=== PATIENT | male | born 1955 | race Caucasian/White ===

== ENCOUNTER 2019-02-19 07:54 | Day surgery (SDC) | payer MEDICAID ==
[~2019-02-19 07:54] MED LIST: Bupivacaine 0.5% 50 ML MDV ONE; Lidocaine 1% with EPINEPHrine 1:100,000 50 ML MDV ONE
[2019-02-19] MEDS ORDERED: Propofol 200 MG/20 ML SDV ONE (08:22)
[2019-02-19] MEDS ORDERED: fentaNYL 100 MCG/2 ML SDV ONE (08:22)
[2019-02-19] MEDS ORDERED: Midazolam 1 MG/ML 2 ML SDV ONE (08:23)
[2019-02-19] MEDS ORDERED: MVI, Adult with Vitamin K 10 ML, Thiamine 200 MG, Chromium/Copper/Mang/Selen/Zn 1 ML in... IV ONE ×4 (08:30)
[2019-02-19] MEDS ORDERED: Linezolid 600 MG in Premix Bag 1 BAG IV ONE (09:00)
[2019-02-19] MEDS ORDERED: Lactated Ringers 1,000 ML IV ONE (09:00)
[2019-02-19] MEDS ORDERED: Meropenem 500 MG SDV ONE (10:22)
[2019-02-19] MEDS ORDERED: Rocuronium 50 MG/5 ML Vial ONE (12:43)
--- NOTE | 2019-02-20 00:33 | OR ---
DATE OF PROCEDURE: 02/19/2019 SURGEON: Wei Handley MD PREOPERATIVE DIAGNOSIS: Indication for central venous access. POSTOPERATIVE DIAGNOSIS: Indication for central venous access. OPERATIVE PROCEDURE: Insertion of Bard PowerPort via left subclavian vein approach (25756). ANESTHESIA: Local plus IV sedation. INDICATION FOR PROCEDURE: This is a 63-year-old presenting with poorly differentiated squamous cell carcinoma, widely metastatic and of unknown primary. Will receive chemotherapy and to facilitate venous access, a Bard port is to be placed. Potential risks including bleeding, infection, injury to the lung and/or vasculature during insertion, problems with port becoming infected or occluded were all reviewed, and the patient wishes to proceed. DETAILS OF PROCEDURE: The patient was taken to the operating room and placed in a supine position. After IV sedation was administered, the upper chest and neck areas were prepped and draped. Left subclavian vein was then cannulated. Guidewire manipulated from there into the superior vena cava. Some additional local was injected. Transverse infraclavicular incision was made and carried down through the skin and subcutaneous tissue and through the pectoralis major fascia. A pocket was then constructed behind the pectoralis major fascia and the port had been placed in that location. The catheter and the port were cut such that the tip was lying in the area of the superior vena cava and right atrial junction, which was then deployed there with a peel-away catheter inserted without difficulty. The incision was closed with 3-0 and 4-0 Vicryl stitch deep and a 5-0 Vicryl subcuticular stitch. Port was then aspirated and then re-injected with heparinized saline with good flow in and out being noted. Dressing was applied. The patient was taken to the recovery room in satisfactory condition. Wei Handley MD /[id number]
== END 2019-02-19 13:45 | disposition home or self-care (01) ==
LOC: JP.SDS 07:54
PROVIDERS: ATTEND Surgery
DX: C79.9 Secondary malignant neoplasm of unspecified site (principal); F17.210 Nicotine dependence, cigarettes, uncomplicated
CPT/HCPCS: 36561; C1788; J1642; J2020; J2250; J2704; J3010; J3411; J3490; J7120; J2185